=== PATIENT | male | born 1995 | race Caucasian/White ===

== ENCOUNTER 2023-06-02 23:16 | Emergency (ER) | payer OTHER ==
[2023-06-02 23:24] VITALS: BP 150/85; PULSE 86; RESP 18; TEMP 98.9; BMI 35.6
[2023-06-03] MEDS ORDERED: ACETAMINOPHEN 325 MG TABLET (FP) PO ONE (02:35)
[2023-06-03] MEDS ORDERED: SULFAMETHOXAZOLE/TRIMETHOPRIM 800MG/160MG D.S. TABLET PO ONE (02:35)
[2023-06-03] MEDS ORDERED: SULFAMETHOXAZOLE/TRIMETHOPRIM 800MG/160MG D.S. TABLET ONE (02:37)
[2023-06-03] MEDS ORDERED: ACETAMINOPHEN 325 MG TABLET (FP) ONE (02:38)
== END 2023-06-03 02:43 | disposition home or self-care (01) ==
LOC: JER 23:16
PROC: 0H90XZZ Drainage of Scalp Skin, External Approach (ICD-10-PCS; principal; 2023-06-02)
DX: L02.811 Cutaneous abscess of head [any part, except face] (principal); R22.0 Localized swelling, mass and lump, head; L53.9 Erythematous condition, unspecified; R51.9 Headache, unspecified; R68.83 Chills (without fever)
CPT/HCPCS: 99283-25